=== PATIENT | female | born 1945 | race Caucasian/White ===

== ENCOUNTER → 2024-01-23 07:38 | Outpatient (REF) | payer MEDICARE, OTHER, SELFPAY ==
[2024-01-23 09:31] LABS: % Basophils 0.7 % (0-2); % Eosinophils 4.2 % (0-6); % Immature Granulocytes 0.3 % (0-0.5); % Lymphocytes 26.2 % (20.5-51.1); % Monocytes 10.3 % (1.7-9.3); % Neutrophils 58.3 % (42.2-75.2); Absolute Basophils 0.1 10^3/uL (0-0.2); Absolute Eosinophils 0.3 10^3/uL (0-0.7); Absolute Monocytes 0.8 10^3/uL (0.1-0.6); Absolute Neutrophils 4.5 10^3/uL (1.4-6.5); Hematocrit 39.6 % (37.0-47.0); Hemoglobin 13.9 g/dL (12.0-16.0); Mean Corp Hgb Conc. 35.1 g/dL (33.0-37.0); Mean Corpuscular Hgb 32.6 pg (27.0-31.0); Nucleated Red Blood Cells % 0 %; Platelet Count 387 10^3/uL (130-400); Red Blood Cell Count 4.26 10^6/uL (4.20-5.40); Red Cell Dist. Width 11.9 % (11.5-14.5); White Blood Cell Count 7.7 10^3/uL (4.8-10.8)
[2024-01-23 09:45] LABS: ALT (SGPT) 15 U/L (0-35); AST (SGOT) 24 U/L (14-36); Alkaline Phosphatase 57 U/L (38-126); Blood Urea Nitrogen 18 mg/dl (7-17); Calcium 9.8 mg/dl (8.4-10.2); Carbon Dioxide 26 mmol/L (22-30); Chloride 99 mmol/L (98-107); Glucose 108 mg/dl (70-99); HDL Cholesterol 37 mg/dl; LDL Cholesterol, Calculated 111 mg/dl; Potassium 3.7 mmol/L (3.5-5.1); Sodium 132 mmol/L (135-145); Total Bilirubin 0.7 mg/dl (0.2-1.3); Total Cholesterol 174 mg/dl (50-199); Total Protein 6.6 g/dl (6.3-8.2); Triglyceride 134 mg/dl (10-149); Very Low Density Lipoprotein 26 mg/dl (0-30); eGFR > 60.00
[2024-01-23 09:50] LABS: Urine Albumin Trace (Neg - Trace); Urine Bilirubin Negative (Negative); Urine Character Clear (Clear); Urine Color Yellow; Urine Glucose Negative (Negative); Urine Ketone Trace (Negative); Urine Leukocyte Trace (Negative); Urine Nitrite Negative (Negative); Urine Occult Blood Negative (Negative); Urine Urobilinogen Negative (Neg - 1+)
[2024-01-23 10:11] LABS: TSH Reflex To Free T4 2.34 uIU/ml (0.47-4.68)
[2024-01-23 11:25] LABS: Urine Mucus Few
[2024-01-23 11:26] LABS: Urine Amorphous Seen; Urine Urothelial Cell 26-30 /LPF (FEW)
[2024-01-23 11:28] LABS: Urine Bacteria Few (Negative); Urine Red Blood Cell 0-2 /HPF (0-2)
[2024-01-23 13:20] LABS: Glycohemoglobin (HgbA1c) 5.9 % (4.0-5.6)
== END ==
LOC: HWLAB 07:38
PROVIDERS: ATTENDING PHYSICIAN Family Medicine
DX: I10 Essential (primary) hypertension (principal); C50.911 Malignant neoplasm of unspecified site of right female breast; R73.03 Prediabetes; E78.00 Pure hypercholesterolemia, unspecified
CPT/HCPCS: 36415; 80053; 80061; 81003; 81015; 83036; 84443; 85025

== ENCOUNTER → 2024-05-27 12:36 | Outpatient (REF) | payer MEDICARE, OTHER, SELFPAY | LOC: HWWDC 12:36 | PROVIDERS: ATTENDING PHYSICIAN Family Medicine Geriatric Medicine; FAMILY PHYSICIAN Family Medicine; REFERRING PHYSICIAN Surgery | DX: Z12.31 Encounter for screening mammogram for malignant neoplasm of breast (principal) | CPT/HCPCS: 77063; 77067 ==

== ENCOUNTER 2024-11-15 14:36 | Inpatient (IN) | payer MEDICARE, OTHER, SELFPAY ==
[2024-11-13 10:56] VITALS: BP 137/97
[2024-11-13 11:19] LABS: % Basophils 0.2 % (0-2); % Eosinophils 0.2 % (0-6); % Immature Granulocytes 0.3 % (0-0.5); % Lymphocytes 16.2 % (20.5-51.1); % Monocytes 8.8 % (1.7-9.3); % Neutrophils 74.3 % (42.2-75.2); Absolute Lymphocytes 1.4 10^3/uL (1.2-3.4); Absolute Monocytes 0.8 10^3/uL (0.1-0.6); Absolute Neutrophils 6.4 10^3/uL (1.4-6.5); Hematocrit 40.7 % (37.0-47.0); Hemoglobin 14.4 g/dL (12.0-16.0); Mean Corp Hgb Conc. 35.4 g/dL (33.0-37.0); Mean Corpuscular Hgb 33.1 pg (27.0-31.0); Mean Corpuscular Volume 93.6 fL (81.0-99.0); Mean Platelet Volume 9.6 fL (7.4-10.4); Nucleated Red Blood Cells % 0 %; Platelet Count 270 10^3/uL (130-400); Red Blood Cell Count 4.35 10^6/uL (4.20-5.40); Red Cell Dist. Width 12.4 % (11.5-14.5); White Blood Cell Count 8.7 10^3/uL (4.8-10.8)
[2024-11-13 11:41] LABS: NT-proBNP 23500 pg/ml
[2024-11-13 11:43] LABS: ALT (SGPT) 22 U/L (0-35); AST (SGOT) 29 U/L (14-36); Alkaline Phosphatase 56 U/L (38-126); Blood Urea Nitrogen 16 mg/dl (7-17); Carbon Dioxide 22 mmol/L (22-30); Chloride 97 mmol/L (98-107); Glucose 164 mg/dl (70-99); Potassium 4.1 mmol/L (3.5-5.1); Sodium 129 mmol/L (135-145); Total Protein 6.2 g/dl (6.3-8.2); eGFR > 60.00
--- NOTE | 2024-11-13 12:45 | ED.GENMED ---
History of Present Illness
General
Chief Complaint: Breathing Problem
Source: patient
Exam Limitations: none
Time Seen by Provider: 11/13/24 12:35
History of Present Illness
History of Present Illness:
79-year-old female with history of hypertension presents with progressive worsening shortness of breath and dyspnea on exertion over the past several weeks. She denies any significant leg swelling or weight gain. She does note a nonproductive
cough. She denies a fever or chest pain. No prior diagnosis of CAD or CHF. She also notes palpitations at times. No recent travel or surgery. No other complaints
Past History
Past History
ED Past Medical History: HTN
ED Past Surgical History: Gynecological (Hysterectomy)
Social History
Tobacco: Non-smoker
Alcohol: None
Drug: None
Living: with family
Phy Exam
Physical Exam
Physical Exam:
General: Well-appearing female with increased work of breathing
HEENT: Normocephalic atraumatic
Heart: Tachycardic but regular
Lungs: Clear no obvious wheeze or rales
Extremities: Mild pitting edema bilateral lower extremities no cyanosis
Skin is warm no rash
Scores
Heart Failure Risk
Heart Failure Risk Score: Not Applicable
Course
Orders/Labs/Results
Orders:
Orders
11/13/24 10:59
Electrocardiogram (*1) Urgent
Reason for Study: Shortness of Breath
11/13/24 11:00
EKG- Treatment ONCE
11/13/24 11:09
Complete Blood Count/With Diff Urgent
Comprehensive Metabolic Panel Urgent
NT-proBNP Urgent
TSH Reflex To Free T4 Urgent
11/13/24 12:[address] Non Medication Order As Directed
Physician Order: ambulatory pulse ox
Above order entered?: Yes
11/13/24 12:45
CR Chest - 2 Views Urgent
Comment:
Reason For Exam: sob
11/13/24 13:15
Troponin I Urgent
11/13/24 13:38
Troponin I Urgent
Furosemide [Lasix] 40 mg IV NOW STA
Abnormal Lab Results
11/13/24
11:09
MCH 33.1 H pg
(27.0-31.0)
Absolute Monos (auto) 0.8 H 10^3/uL
(0.1-0.6)
Lymphocytes % 16.2 L %
(20.5-51.1)
Sodium 129 L mmol/L
(135-145)
Chloride 97 L mmol/L
(98-107)
Glucose 164 H mg/dl
(70-99)
Total Protein 6.2 L g/dl
(6.3-8.2)
11/13/24 11:09
11/13/24 11:09
Vital Signs
Initial and Last Documented VS:
Initial Vital Signs
Temp Pulse Resp BP Pulse Ox
98.0 F 104 18 137/97 96
11/13/24 10:56 11/13/24 10:56 11/13/24 10:56 11/13/24 10:56 11/13/24 10:56
Last Documented Vital Signs
Temp Pulse Resp BP Pulse Ox
98.0 F 121 20 137/97 95
11/13/24 10:56 11/13/24 13:27 11/13/24 13:27 11/13/24 10:56 11/13/24 13:27
MDM/Problems Addressed
Differential Diagnosis Includes:
Shortness of breath and dyspnea on exertion worsening over the past several weeks. Differential could include anemia versus electrolyte abnormality versus CHF versus pneumonia versus PE. Also consider ACS.
EKG shows left bundle branch block with PACs and sinus tachycardia otherwise. Labs reviewed BNP elevated at 23,500. Chest x-ray pending. Consider CHF. If chest x-ray negative consider CT of chest given tachycardia and shortness of breath.
*Critical Care Note
Total Time (30-74mins, 75-104mins- exclusive of procedures): Not Applicable
Update Note
Update Note:
Chest x-ray demonstrates moderate bilateral pleural effusions with pulmonary edema. BNP is elevated here. I suspect CHF. Patient quite dyspneic on exertion here. Will order 40 mg of Lasix. Recommend admission to hospital
ED Attending Note
-
Portions of this chart may have been created with voice recognition software.� Occasional wrong word or��sound alike� substitutions may have occurred due to the inherent limitations of voice recognition software.
Discharge Plan
Departure
Patient Disposition: Admit
Date of Disposition: 11/13/24
Time of Disposition: 13:40
Admit to: Telemetry
Presentation/result/management discussed w/ accepting MD/DO: Hospitalist
Discharge Problem:
CHF (congestive heart failure)
Prescriptions:
No Action
clonazepam 0.25 MG tablet
0.25 mg PO Q8H PRN (Reason: anxiety)
hydrochlorothiazide 12.5 MG capsule
12.5 mg PO DAILY
lisinopril [Prinivil] 5 MG tablet
5 mg PO DAILY
prednisone 50 MG tablet
50 mg PO DAILY Qty: 5 0RF
valacyclovir 1,000 MG tablet
1,000 mg PO TID Qty: 21 0RF
Referrals:
Jeana Rob MD [Family Provider] -
Interventions
Interventions:
*Risk Screen - Suicide Last Done: 11/13/24 10:56
*General Assessment Last Done: 11/13/24 10:56
*Neglect/Abuse Screening Last Done: 11/13/24 10:56
*ED COVID-19 Vaccine History Last Done: 11/13/24 10:56
Discharge Date and Time
Print Language: HUNGARIAN
[2024-11-13 13:53] LABS: Troponin I 0.035 ng/ml
[2024-11-13] MEDS: LASIX 40 MG IV (14:19)
[2024-11-13 14:20] VITALS: BMI 26.4
--- NOTE | 2024-11-13 14:35 | HPS.HSE ---
Family Physician
-
Family Physician: Jeana Rbo
Chief Complaint
-
shortness of breath
History of Present Illness
79-year-old female past medical history of chronic sinusitis hypertension, presenting with progressive shortness of breath with exertion over the past several weeks with mildly productive cough. Denies any lower leg swelling or weight gain. Denies
fevers or chest pain. No prior history of CAD or CHF. She has palpitations at times.
Denies any history of heart failure or CAD.
She was started on Augmentin for sinus issues which she took for 5 days but then stopped taking for the past 2 days. She is supposed to take this for 10 days total.
Denies any family history of heart disease.
Does not smoke or drink alcohol.
Medical History
Past Medical History
Past Medical History: Reports Other (chronic sinusitis hypertension)
Past Surgical History: Reports Other (Tonsillectomy, , breast biopsy)
Social History
Tobacco: Non-smoker
Alcohol: None
Drug: None
Family History
Family History: Not pertinent
Allergies / Home Medications
Allergies reflects when Allergies were last updated in [email or web address].
Home Medications with original date entered in [email or web address]
Allergy/Medication List:
Allergies
Allergy/AdvReac Type Severity Reaction Status Date / Time
azithromycin Allergy WELTS & Verified 12/21/21 07:34
HIVES FROM
Z-GODFREY
cefuroxime Allergy Hives Verified 12/21/21 07:34
hydrochlorothiazide Allergy Unknown Verified 11/13/24 10:59
levofloxacin Allergy Unknown Verified 12/21/21 07:34
sulfamethoxazole Allergy VERY Verified 12/21/21 07:34
NERVOUS
trimethoprim Allergy VERY Verified 12/21/21 07:34
NERVOUS
Home Medications
Calms Forte 1 tab PO HSPRN PRN sleep 11/13/24
amoxicillin 875 mg-potassium clavulanate 125 mg tablet 1 tab PO BID 11/13/24
clonazepam 0.5 mg tablet 0.25 mg PO BIDPRN PRN anxiety 11/13/24
fexofenadine 180 mg tablet 180 mg PO DAILYPRN PRN sinus infection/congestion 11/13/24
lisinopril 5 mg tablet 5 mg PO DAILY 11/13/24
Review of Systems
-
History Source: Patient
A 12 point ROS was completed and negative except as noted: Yes
Constitutional: Reports No Symptoms
EENT: Reports No Symptoms
Respiratory: Reports See HPI
Cardiac: Reports See HPI
Abdomen/GI: Reports No Symptoms
: Reports No Symptoms
Musculoskeletal: Reports No Symptoms
Skin: Reports No Symptoms
Neurological: Reports No Symptoms
Endocrine: Reports No Symptoms
Hematologic/Lymphatic: Reports No Symptoms
Psych: Reports No Symptoms
Physical Exam
Vital Signs
Vital Signs
Temp Pulse Resp BP Pulse Ox
98.0 F 98 20 131/85 95
11/13/24 10:56 11/13/24 14:19 11/13/24 13:27 11/13/24 14:19 11/13/24 13:27
Physical Exam
General: Well Developed, Well Nourished and No Apparent Distress
HEENT: NormoCephalic, Moist mucous membranes and Atraumatic
Respiratory: Rales
Cardiac: S1/S2 and Regular Rhythm; No Murmur or Rub
GI: Soft, Non Tender, Non Distended and Normal Bowel Sounds; No Organomegaly
Rectal: Deferred by Provider
Musculoskeletal: No Clubbing, No Cyanosis and No Edema
Skin: No Rash
Neuro: Nonfocal/grossly intact
Laboratory Results
-
11/13/24 11:09
11/13/24 11:09
Laboratory Results
Total Bilirubin 1.0 mg/dl (0.2-1.3) 11/13/24 11:09
AST 29 U/L (14-36) 11/13/24 11:09
ALT 22 U/L (0-35) 11/13/24 11:09
Alkaline Phosphatase 56 U/L (38-126) 11/13/24 11:09
Troponin I Cancelled 11/13/24 13:38
Data Reviewed
-
Lab Data: Labs Reviewed by me
Old Records: Reviewed
Impression/Plan
-
IMPRESSION:
PLAN:
# Acute CHF exacerbation
-Chest x-ray shows small to moderate-sized bilateral pleural effusions, large bilateral lower lobe basilar space consolidations likely compressive atelectasis versus less likely pneumonia
-Moderate interstitial cardiogenic pulm edema
-Cardiac BNP of 1999
-I's and O's, daily weights
-Lasix 40 IV daily
-Check echo
-Cardiology consult
# Nonischemic myocardial injury
-no chest pain
-EKG shows sinus tachycardia with PACs, left bundle branch block without prior for comparison
-Troponin 0.035
-Trend troponins
# Chronic sinusitis
-Was started on Augmentin for 10-day course only took 5 days and stopped taking
-Can stop as no acute sinusitis symptoms currently
-Continue Johanny
Essential hypertension
-Continue lisinopril
Anxiety
-Continue clonazepam
Full code
DVT prophylaxis�heparin
Cardiac diet
[2024-11-13 15:24] VITALS: BP 135/92
[2024-11-13 16:00] VITALS: BP 136/99
[2024-11-13 16:41] VITALS: BP 142/90
--- NOTE | 2024-11-13 17:16 | PTCARENOTE ---
Patient admitted to 2243 with CHF exacerbation. Oriented to room and plan of care. SR on the monitor, 100% on RA, decreased breath sounds at the bases with fine crackles. While doing the patient's admission assessment she had a 16 beat run of VT.
Patient was asymptomatic and returned to . Notified Dr. Franklin, to add mag to ED labs. at the bedside, call perez in reach.
[2024-11-13] MEDS: KLONOPIN 0.25 MG PO (18:21)
--- NOTE | 2024-11-13 18:37 | PTCARENOTE ---
Patient is upset about being in a single room, was hoping she'd have a room mate. Very anxious, wants to have the doors wide open so that she can see out. Assisted to the bathroom and instructed to call for help when getting oob. Patient admitting
to feeling more and more anxious and requested prn klonopin which was given, emotional support given, call perez in reach.
[2024-11-13 19:40] VITALS: BP 110/95
[2024-11-13] MEDS: HEPARIN 5000 UNITS SC (20:07)
[2024-11-13 20:43] LABS: Troponin I 0.046 ng/ml
[2024-11-13 22:44] VITALS: BP 128/84
[2024-11-14] VITALS (24 sets, daily range): BP systolic 90–130; BP diastolic 61–101; BMI 24.5
[2024-11-14] MEDS: KLONOPIN 0.25 MG PO ×2 (02:21→20:48)
[2024-11-14 02:55] LABS: Hematocrit 41.3 % (37.0-47.0); Hemoglobin 14.1 g/dL (12.0-16.0); Mean Corp Hgb Conc. 34.1 g/dL (33.0-37.0); Mean Corpuscular Hgb 32.1 pg (27.0-31.0); Mean Corpuscular Volume 94.1 fL (81.0-99.0); Mean Platelet Volume 9.2 fL (7.4-10.4); Platelet Count 257 10^3/uL (130-400); Red Blood Cell Count 4.39 10^6/uL (4.20-5.40); Red Cell Dist. Width 12.6 % (11.5-14.5); White Blood Cell Count 8.8 10^3/uL (4.8-10.8)
[2024-11-14 03:22] LABS: Blood Urea Nitrogen 14 mg/dl (7-17); Calcium 9.9 mg/dl (8.4-10.2); Carbon Dioxide 23 mmol/L (22-30); Chloride 99 mmol/L (98-107); Estimated Creatinine Clearance 60 ml/min; Glucose 93 mg/dl (70-99); Potassium 3.5 mmol/L (3.5-5.1); Sodium 133 mmol/L (135-145); eGFR > 60.00
[2024-11-14 03:34] LABS: Troponin I 0.047 ng/ml
--- NOTE | 2024-11-14 04:00 | PTCARENOTE ---
Pt ambulating as stand by assist to the bathroom without issue. No complaints of chest pain. pt resting in bed comfortable overnight after second PRN Klonopin for anxiety. emotional support provided throughout shift.
[2024-11-14] MEDS: HEPARIN 5000 UNITS SC ×2 (08:36→20:48)
[2024-11-14] MEDS: LASIX 40 MG IV (08:37)
--- NOTE | 2024-11-14 09:44 | CON.CAR ---
Addendum entered and electronically signed by Vladislav Anguiano MD 11/14/24 11:46:
Patient seen and examined in collaboration with NETWORKING SPECIALIST; agree with below.
-79-year-old female with hypertension, hyperlipidemia, and prediabetes admitted with 1 month history of shortness of breath; clinical findings suggestive of acute CHF, including cardiac BNP of 23,500.
-Transthoracic echocardiogram today revealed an LVEF of 10-15% and moderate to severe MR.
-The patient will undergo right and left heart catheterization today to assess coronary status and cardiac output/index.
-Recommend Lasix 40 mg once daily, given blood pressure limitations.
-The patient has also had brief runs of NSVT on telemetry; will start Toprol-XL 25 mg daily.
-Continue telemetry.
-Further GDMT throughout hospitalization, his blood pressure and clinical status allows.
Original Note:
Consultation
Consultation Request
Date/Time Consultation Requested: 11/13/242216
Date/Time Consultation Performed: 11/14/24929
Requesting Provider: Dr. Franklin
Performing Provider: Eliza ERICKSON for Dr. Anguiano
Reason for Consultation: CHF
Medical History
-
Chief Complaint: SOB
History of Present Illness:
79 y/o female with hypertension, dyslipidemia (most recent LDL 111), preDM (hgbA1C 5.9 last year), anxiety, breast CA (right-sided ductal carcinoma in situ, s/p radiation) who is here for about 1 month of SOB, worse with exertion and laying. Also
reports PND and abdominal bloating. She has noted L-sided mild chest pressure when she gets the SOB, over the past week. No CP at present. She is admitted for CHF. LBBB noted on EKG, which is new since last EKG as OP 2021.
Past Medical History
Past Medical History: Cancer, HTN, Hypercholesterolemia and Other (as above)
Social History
Tobacco: Non-Smoker
Alcohol: None
Family History
Family History: Other (patient does not know)
Allergies / Home Medications
Allergy/AdvReac Type Severity Reaction Status Date / Time
azithromycin Allergy WELTS & Verified 12/21/21 07:34
HIVES FROM
Z-GODFREY
cefuroxime Allergy Hives Verified 12/21/21 07:34
hydrochlorothiazide Allergy Unknown Verified 11/13/24 10:59
levofloxacin Allergy Unknown Verified 12/21/21 07:34
sulfamethoxazole Allergy VERY Verified 12/21/21 07:34
NERVOUS
trimethoprim Allergy VERY Verified 12/21/21 07:34
NERVOUS
�Medication �Instructions �Recorded �Confirmed �Type
Calms Forte 1 tab PO HSPRN PRN sleep 11/13/24 11/13/24 History
amoxicillin 875 mg-potassium 1 tab PO BID Infection 11/13/24 11/13/24 History
clavulanate 125 mg tablet
clonazepam 0.5 mg tablet 0.25 mg PO BIDPRN PRN anxiety 11/13/24 11/13/24 History
fexofenadine 180 mg tablet 180 mg PO DAILYPRN PRN sinus 11/13/24 11/13/24 History
infection/congestion
lisinopril 5 mg tablet 5 mg PO DAILY Blood Pressure 11/13/24 11/13/24 History
Review of Systems
-
History Source: Patient
All other systems: Negative unless noted
Respiratory: Cough and Trouble Breathing
Cardiac: Chest Pain
Physical Exam
Vital Signs
Temp Pulse Resp BP Pulse Ox
97.5 F 71 18 119/74 93
11/14/24 07:39 11/14/24 08:37 11/14/24 07:39 11/14/24 08:37 11/14/24 07:39
Lab Results
11/14/24 02:31
11/14/24 02:31
Troponin I 0.047 ng/ml H* 11/14/24 02:31
Qoy-Q-Wuckjmdqzio Pept 54661 pg/ml 11/13/24 11:09
Physical Exam
General: Well Developed, Well Nourished and No Apparent Distress
HEENT: Normocephalic and Anicteric
Respiratory: Crackles (b/l bases)
Cardiac: Regular Rhythm
Musculoskeletal: Edema (trace BLE edema)
Skin: Warm and Dry
Neuro: AO x 3
Psych: Calm
Impression / Plan
-
Acute heart failure with reduced ejection fraction:
-BNP 23,500, CXR with pleural effusions, pulmonary edema as noted, rales to BL bases
-IV Lasix, will change to BID and give potassium supplementation- this requires intensive monitoring for toxicity
-echo this AM- prelim read EF is reduced- will need cath. Check lipids, HGBa1C.
NSVT:
-replace K
-cath this admit as above
-add BB
HTN:
-stable
-monitor with medicine adjustments
Abnormal troponin:
-likely acute, non ischemic myocardial injury in setting of CHF
Data Reviewed
-
EKG: Tracing Personally Visualized and interpreted (ST with LBBB, PAC's)
Radiology: Report Reviewed by me (CXR: Small to moderate-sized bilateral pleural effusions. Large bilateral lower lobe basilar airspace consolidations (probably compressive atelectasis and less likely pneumonia). Moderate interstitial cardiogenic
pulmonary edema. )
Labs: Labs Reviewed by me
--- NOTE | 2024-11-14 10:53 | CM ---
Chart reviewed. Patient is independent of ADLS, lives with her in a [address], 1 [address], 0 DME. Plan is for the patient to return home. CM to follow
[2024-11-14] MEDS: ASPIRIN 325 MG PO (11:17)
[2024-11-14] MEDS: KCL 40 MEQ PO (11:17)
[2024-11-14] MEDS: TOPROL XL 25 MG PO (11:18)
--- NOTE | 2024-11-14 12:18 | W.PN.UPDATE ---
Update Note
Progress Note Update
I called patient's Dawson over the phone and updated him at patient's request.
--- NOTE | 2024-11-14 13:15 | PTCARENOTE ---
Discussed all nursing measures prior to implementation. Discussed cardiac cath procedure.
--- NOTE | 2024-11-14 13:23 | W.PN.HOSP.TC ---
Today's Communication/Plan
-
Assessment / Plan
Assessment / Plan
Acute HFrEF exacerbation, EF 10 to 15%
-IV diuretics
-Per cardiology for LHC/RHC
-Monitor urinary output
-Follow renal function
-Keep K greater than 4
-Keep Mg greater than 2
Nonischemic NH
-Trend trop
-Cards eval
-For LHC/RHC
NSVT
-Keep K >4
-Keep Mg >2
-add BB
HTN
-Continue acei
Anticipated Discharge: 24 - 48 hours
Subjective/Interval History
-
Date of Service: November 14, 2024
seen an dexamined. no new complaints
no acute ovenright events
Objective Data
-
Labs:
Laboratory Results
11/14/24
02:31
WBC 8.8
Hgb 14.1
Hct 41.3
Plt Count 257
Sodium 133 L
Potassium 3.5
Chloride 99
Carbon Dioxide 23
BUN 14
Creatinine 0.7
Glucose 93
Calcium 9.9
Vital Signs:
Vital Signs
Temp Pulse Resp BP Pulse Ox
97.6 F 87 20 125/85 98
11/14/24 11:00 11/14/24 12:00 11/14/24 11:00 11/14/24 11:18 11/14/24 11:00
I&O
11/13/24 11/14/24 11/15/24
06:59 06:59 06:59
Intake Total 240 / 240 450 / 450
Output Total 1300 / 1300
Balance 240 / 240 -850 / -850
Physical Exam
-
General: No Apparent Distress
HEENT: Normocephalic and Atraumatic
Respiratory: Crackles
Cardiac: Regular Rhythm and S1/S2
GI: Soft, Nontender, Nondistended and Normal Bowel Sounds
Musculoskeletal: Edema, Right Lower Extrem and Edema, Left Lower Extrem
Skin: Warm
--- NOTE | 2024-11-14 13:45 | PTCARENOTE ---
Received pt post cath. VSS. Pt denies any chest discomfort. Right radial band site w/ 12 ml of air intact. Orders noted. Will monitor.
[2024-11-14] MEDS: ZESTRIL 5 MG PO (17:35)
--- NOTE | 2024-11-14 17:51 | PTCARENOTE ---
Pt bled about 50 ml of blood, on the floor from R band. Unsure of amount of air in band. Pt had ambulated to the bathroom prior to bleed. Manual pressure over the R band applied. Reinflated R band w/ 5 ml of air. VSS. Will monitor.
--- NOTE | 2024-11-14 18:34 | ITS.CL.PN ---
Hardware Developer - Procedure Note
Procedure
Procedure Note:
CARDIAC CATHETERIZATION REPORT
Date of Procedure: 11/14/2024
Referring: Dr. Vladislav Anguiano MD
Indication: heart failure
PROCEDURE(S)
1. right heart catheterization
2. left heart catheterization
3. coronary angiography
ACCESS
1. 6F right radial artery (closure: radial band)
2. 5F right antecubital vein (closure: manual hemostasis)
CATHETERS
1. 5F [place]
2. 6F JR4
3. 6F JL3.5
HEMODYNAMIC DATA
LV 124/11 (EDP 25) mmHg
AO 110/76 (mean 90) mmHg
RA 11 mmHg
RV 35/8 mmHg
PA 40/18 (mean 25) mmHg
PCWP 16 mmHg
SaO2 87.7%
SvO2 60.2%
Hb 15.3 g/dL
CO/CI 3.5/2.2 L/min/m2
SVR 1804 dsc*-5
PVR 2.6 Wood units
CORONARY ANGIOGRAPHY
Dominance: Right
LM: Large and normal
LAD: Large vessel giving rise to two small diagonal branches. There are trivial luminal irregularities only.
LCx: Large vessel giving rise to a large high rising OM1/ramus, moderate caliber OM2, and small OM3. There are trivial luminal irregularities only.
RCA: Large vessel giving rise to a moderate caliber RPDA and a large RPL system. There are trivial luminal irregularities only.
RADIATION: dose 186 mGy; DAP 11.9 Gy*cm2; fluoroscopy time 2.0 min
CONCLUSIONS
1. Elevated biventricular filling pressures, mild pulmonary hypertension, and mildly reduced cardiac output and index.
2. No aortic stenosis on hemodynamic pullback.
3. Trivial luminal irregularities in a right dominant system.
RECOMMENDATIONS
1. expectant management after cardiac catheterization via right radial artery and right brachial vein approach
2. further workup and management of nonischemic cardiomyopathy. reassessment of EF and MR severity after several months of maximally tolerated GDMT to determine indication for SUPERINTENDENT SANITATION/mitraclip.
3. transition to oral diuretics tomorrow
Copy to: Jeana Rob MD (PCP)
Signed: Zach Cheney MD, PhD
[2024-11-14 19:20] LABS: Hepatitis C Antibody Negative (Negative)
[2024-11-15] VITALS (7 sets, daily range): BP systolic 95–131; BP diastolic 55–94; BMI 23.8
--- NOTE | 2024-11-15 02:50 | PTCARENOTE ---
21:15 pt c/o left groin pain. Left groin swollen, hard, and painful to touch. CVPA notified, applied femostop, pt taken to STAT CTA.
[2024-11-15 03:19] LABS: Hematocrit 42.5 % (37.0-47.0); Hemoglobin 14.9 g/dL (12.0-16.0); Mean Corp Hgb Conc. 35.1 g/dL (33.0-37.0); Mean Corpuscular Hgb 32.5 pg (27.0-31.0); Mean Corpuscular Volume 92.6 fL (81.0-99.0); Mean Platelet Volume 9.5 fL (7.4-10.4); Platelet Count 261 10^3/uL (130-400); Red Blood Cell Count 4.59 10^6/uL (4.20-5.40); Red Cell Dist. Width 12.6 % (11.5-14.5)
[2024-11-15 03:59] LABS: Blood Urea Nitrogen 13 mg/dl (7-17); Calcium 9.9 mg/dl (8.4-10.2); Carbon Dioxide 29 mmol/L (22-30); Chloride 95 mmol/L (98-107); Estimated Creatinine Clearance 47 ml/min; Glucose 108 mg/dl (70-99); HDL Cholesterol 39 mg/dl; LDL Cholesterol, Calculated 76 mg/dl; Potassium 3.6 mmol/L (3.5-5.1); Sodium 131 mmol/L (135-145); Total Cholesterol 133 mg/dl (50-199); Triglyceride 94 mg/dl (10-149); Very Low Density Lipoprotein 18 mg/dl (0-30); eGFR > 60.00
--- NOTE | 2024-11-15 08:05 | PTCARENOTE ---
Assumed care of pt from prev nsg shift; Pt AAOx3 w/no c/o CP or SOB. Pt w/VS stable w/HR in the 80's-90's & BP 131/62 this AM. Plan of care discussed w/pt & spouse. Pt for poss D/C today. Pt verbalized understanding. Pt w/call perez within reach &
plan of care ongoing.
[2024-11-15] MEDS: TOPROL XL 25 MG PO (10:44)
[2024-11-15] MEDS: ZESTRIL 5 MG PO (10:44)
[2024-11-15] MEDS: HEPARIN 5000 UNITS SC (10:44)
[2024-11-15] MEDS: LASIX 40 MG PO (10:44)
[2024-11-15] MEDS: LOW STRENGTH ASPIRIN 81 MG PO (10:44)
--- NOTE | 2024-11-15 11:31 | CM ---
Chart reviewed. Patient is independent of ADLS, lives with her in a 2 [address], 1 [facility], 0 DME. Patient is current not current with VN, but is interested in VN. Referral sent to [facility]. Plan is for the [facility]
[2024-11-15 11:32] LABS: Glycohemoglobin (HgbA1c) 5.8 % (4.0-5.6)
[2024-11-15] MEDS: KLONOPIN 0.25 MG PO (12:32)
--- NOTE | 2024-11-15 14:50 | CM ---
Pricing on Entresto is a tier 3 medication $604.22 for a 30 day supply with the patient's [employer] Plan, ID # [id number].
Farxiga 10 mg is $563.90, the patient needs to meet her $2000 deductible first.
[2024-11-15] MEDS: FARXIGA 10 MG PO (15:24)
--- NOTE | 2024-11-15 16:10 | W.PN.CD ---
Today's Communication / Plan
-
discharge today on GDMT and close outpatient cardiology follow up
Impression / Plan
-
Acute heart failure with reduced ejection fraction:
-BNP 23,500, CXR with pleural effusions, pulmonary edema as noted, rales to BL bases
-severely reduced EF on TTE
-cath with non-obstructive CAD, mildly elevated filling pressures
-most likely etiology is stress induced CM (recent in the family), TSH normal
-initiate GDMT with lisinopril 5, metop 25, will add dapa 10 and increase lisinopril to 5; next would be spironolactone (Entersto not affordable)
-will discharge on lasix 40 mg PO daily
-needs close outpatient follow up to titrate GDMT and for reassessment of EF once on maximally tolerated GDMT to determine candidacy for advanced therapies (SUPERVISOR HARDBO[employer], yamel clip)
NSVT:
-continue BB
HTN:
-stable
-monitor with medicine adjustments
Abnormal troponin:
-likely acute, non ischemic myocardial injury in setting of CHF
Extensive discussion with patient and on the phone regarding workup for heart failure and management options as well as collaboration with case management and primary team to determine affordable optimal GDMT regimen.
TTE 11/14/2023
-LV ejection fraction is 10-15%, by visual assessment. Severe global
hypokinesis. Wall motion is also consistent with conduction abnormality.
-Normal right ventricular size and function.
-Severely dilated left atrium. Moderately dilated right atrium.
-Moderate to severe mitral regurgitation.
-Mild to moderate tricuspid regurgitation. Estimated pulmonary artery pressure
of 25-30 mmHg.
Cath 11/14/2023
1. Elevated biventricular filling pressures, mild pulmonary hypertension, and mildly reduced cardiac output and index.
2. No aortic stenosis on hemodynamic pullback.
3. Trivial luminal irregularities in a right dominant system.
Physical Exam
Vital Signs/Labs
Vital Signs
Temp Pulse Resp BP Pulse Ox
36.4 C 77 20 108/94 92
11/15/24 15:34 11/15/24 13:00 11/15/24 15:34 11/15/24 11:18 11/15/24 15:34
11/14/24 11/15/24 11/16/24
06:59 06:59 06:59
Actual Weight 60.7 kg 59 kg
11/15/24 02:54
11/15/24 02:54
Magnesium 2.0 mg/dl (1.6-2.3) 11/13/24 11:09
Triglycerides 94 mg/dl (10-149) 11/15/24 02:54
LDL Cholesterol, Calc 76 mg/dl 11/15/24 02:54
VLDL Cholesterol, Calc 18 mg/dl (0-30) 11/15/24 02:54
HDL Cholesterol 39 mg/dl 11/15/24 02:54
11/13/24
11:09
Rth-D-Qcgminsnynf Pept [id number]
LAB Results
11/13/24 11/13/24 11/13/24
13:15 13:38 16:36
Troponin I 0.035 H* Cancelled Cancelled
11/13/24 11/13/24 11/14/24
20:05 22:36 02:31
Troponin I 0.046 H* D Cancelled 0.047 H*
Physical Exam
Constitutional: No acute distress
Cardiovascular: Rhythm & rate is regular
Respiratory: Respiratory effort normal
Neuro/Psych: AO x 3
Data Reviewed
-
Date of Service: November 15, 2024
Medical Decision Making: Reviewed Test Results
EKG: Tracing Personally Visualized and interpreted and Report Reviewed by me
Echo: Tracing Personally Visualized and interpreted and Report Reviewed by me
Labs: Labs Reviewed by me
--- NOTE | 2024-11-15 16:35 | W.PN.HOSP.TC ---
Today's Communication/Plan
-
DC home
More than 30 minutes spent in discharge including
Final examination of the patient
Summarizing hospital stay
Instructions for continuing care to all relevant caregivers
Preparation of discharge records, prescriptions, and referral forms
Total time spent (in minutes): 33mins
Assessment / Plan
Assessment / Plan
Acute HFrEF exacerbation, EF 10 to 15%, nonischemic, NYHA class II-IV
-Transition to p.o. diuretics
-LHC demonstrated trivial luminal irregularities
-Monitor urinary output
-Follow renal function
-Keep K greater than 4
-Keep Mg greater than 2
-GDMT initiated discharge home with Lasix 40 mg, Jardiance for which a coupon was provided, beta-delia, CECILIA inhibitor
Nonischemic UT
-S/p left heart catheterization, trivial luminal irregularities
NSVT
-Keep K >4
-Keep Mg >2
-add BB
HTN
-Continue acei
Anticipated Discharge: Today
Subjective/Interval History
-
Date of Service: November 15, 2024
Seen and examined. No new complaints. No acute overnight events.
Objective Data
-
Vital Signs:
Vital Signs
Temp Pulse Resp BP Pulse Ox
97.6 F 78 20 95/55 92
11/15/24 15:34 11/15/24 16:00 11/15/24 15:34 11/15/24 15:34 11/15/24 15:34
I&O
11/14/24 11/15/24 11/16/24
06:59 06:59 06:59
Intake Total 240 / 240 450 / 450
Output Total 1850 / 1850 150 / 150
Balance 240 / 240 -1400 / -1400 -150 / -150
Physical Exam
-
General: Well Developed and Well Nourished
HEENT: Normocephalic
Respiratory: Clear to Auscultation
Cardiac: Regular Rhythm and S1/S2
GI: Soft, Nontender, Nondistended and Normal Bowel Sounds
Musculoskeletal: No Clubbing
Skin: Warm and Dry
Neuro: Awake, Alert, Oriented and AO x 3
--- NOTE | 2024-11-15 16:37 | W.DCSUMMARY ---
Discharge Summary
Discharge Data
Date of Admission: 11/15/24
Date of Discharge: 11/15/24
-
Pending Results: No
Hospital Course
79-year-old female past medical history of chronic sinusitis hypertension
Presented with shortness of breath with associated exertion and mild productive cough. Found to have a high cardiac BNP and cardiac enzymes along with chest x-ray demonstrating bilateral pleural effusions. Was evaluated by cardiology found to have
a EF of 10 to 15% and regional wall motion abnormalities on 2D echocardiogram. Taken to the [employer] which demonstrated trivial luminal irregularities. Therefore believed cardiomyopathy is nonischemic and concerned that this could be Takotsubo's
cardiomyopathy.
On discharge we will go home with GDMT for HFrEF which includes diuretic, CECILIA inhibitor, beta-delia, and an SGLT2 inhibitor. Will need continued outpatient cardiology follow-up and repeat 2D echocardiogram in 3 months time.
C
RECOMMENDATIONS
1. expectant management after cardiac catheterization via right radial artery and right brachial vein approach
2. further workup and management of nonischemic cardiomyopathy. reassessment of EF and MR severity after several months of maximally tolerated GDMT to determine indication for METAL FURNITURE REPAIRER/mitraclip.
3. transition to oral diuretics tomorrow
2d echo
CONCLUSIONS
-LV ejection fraction is 10-15%, by visual assessment. Severe global
hypokinesis. Wall motion is also consistent with conduction abnormality.
-Normal right ventricular size and function.
-Severely dilated left atrium. Moderately dilated right atrium.
-Moderate to severe mitral regurgitation.
-Mild to moderate tricuspid regurgitation. Estimated pulmonary artery pressure
of 25-30 mmHg.
No prior study available for comparison.
Discharge Plan
-
Patient Disposition: Home (Routine Discharge)
Discharge Diagnosis/Procedures: Acute heart failure, Cardiac cath
Diet: As tolerated, Low Fat, Low Cholesterol, Low Sodium, 2 Gram Sodium, No added salt and Restrict fluids to 48 oz
Driving Restrictions: No driving for 24 hours
Blood Work: BMP in 1 week. Please follow up labs with Dr. Jeana Rob
Other Services: Cardiac Rehab
Specialty Instructions: Weigh Daily- Call MD for wt gain/loss 3 lbs overnight/5 lbs in 1 week
Activity Restrictions/Additional Instructions:
Presented with shortness of breath with associated exertion and mild productive cough. Found to have a high cardiac BNP and cardiac enzymes along with chest x-ray demonstrating bilateral pleural effusions. Was evaluated by cardiology found to have
a EF of 10 to 15% and regional wall motion abnormalities on 2D echocardiogram. Taken to the [employer] Operator which demonstrated trivial luminal irregularities. Therefore believed cardiomyopathy is nonischemic and concerned that this could be Takotsubo's
cardiomyopathy.
On discharge we will go home with GDMT for HFrEF which includes diuretic, CECILIA inhibitor, beta-delia, and an SGLT2 inhibitor. Will need continued outpatient cardiology follow-up and repeat 2D echocardiogram in 3 months time.
[facility]
RECOMMENDATIONS
1. expectant management after cardiac catheterization via right radial artery and right brachial vein approach
2. further workup and management of nonischemic cardiomyopathy. reassessment of EF and MR severity after several months of maximally tolerated GDMT to determine indication for METAL FURNITURE REPAIRER/mitraclip.
3. transition to oral diuretics tomorrow
2d echo
CONCLUSIONS
-LV ejection fraction is 10-15%, by visual assessment. Severe global
hypokinesis. Wall motion is also consistent with conduction abnormality.
-Normal right ventricular size and function.
-Severely dilated left atrium. Moderately dilated right atrium.
-Moderate to severe mitral regurgitation.
-Mild to moderate tricuspid regurgitation. Estimated pulmonary artery pressure
of 25-30 mmHg.
No prior study available for comparison.
Instructions: Heart failure with reduced ejection fraction, *CBC Heart Failure Instructions
Stand Alone Forms: DC Instructions- Cath/EP Lab
Referrals:
[facility] [Outside]
Zara Garnica NP [Specified Professional Personl] - 12/06/24 11:00 am
Jeana Rob MD [Family Provider] - None
Prescriptions:
New
Jardiance 10 mg tablet
10 mg PO DAILY Qty: 30 0RF
furosemide 40 mg Tablet
40 mg PO DAILY Qty: 30 0RF
aspirin 81 mg Tablet,Chewable
81 mg PO DAILY Qty: 30 0RF
metoprolol succinate 25 mg Tablet Extended Release 24 Hr
25 mg PO DAILY Qty: 30 0RF
lisinopril 10 mg tablet
10 mg PO DAILY Qty: 30 0RF
Continued
clonazepam 0.5 mg tablet
0.25 mg PO BIDPRN PRN (Reason: anxiety)
fexofenadine 180 mg Tablet
180 mg PO DAILYPRN PRN (Reason: sinus infection/congestion)
Calms Forte
1 tab PO HSPRN PRN (Reason: sleep)
Discontinued
lisinopril 5 mg tablet
5 mg PO DAILY
amoxicillin-pot clavulanate 875-125 mg tablet
1 tab PO BID
Discharge Orders:
Discharge Patient (As Directed); Ordered 11/15/24
Ordered By: Shawn Thomas
Care Plan Goals
Care Plan Goals:
Problem: Readiness for enhanced knowledge related to diagnosis and treatment plan
Goal: Understand your diagnosis and treatment plan needs, including medications if applicable.
Instructions: Know your diagnosis, underlying causes and treatment plan options, including medications if applicable. Consult with your health care team to learn about your diagnosis and treatment plan, including medications if applicable.
Discharge Date and Time
Print Language: KUWAITI
--- NOTE | 2024-11-15 18:03 | PTCARENOTE ---
D/C instructions discussed w/pt & pt's spouse. Pt's IV line & monitoring coordinator D/C'd. Pt taken out via wheelchair by staff.
== END 2024-11-15 17:34 | disposition home health service (06) | DRG 286 ==
LOC: IVU 14:36
PROVIDERS: Nurse Practitioner; Physician Assistant; Student in an Organized Health Care Education/Training Program; ADMITTING PHYSICIAN Hospitalist; ATTENDING PHYSICIAN Hospitalist; EMERGENCY PHYSICIAN Emergency Medicine; FAMILY PHYSICIAN Family Medicine; OTHER PHYSICIAN Internal Medicine
PROC: B2111ZZ Fluoroscopy of Multiple Coronary Arteries using Low Osmolar Contrast (ICD-10-PCS; 2024-11-14)
PROC: 4A023N8 Measurement of Cardiac Sampling and Pressure, Bilateral, Percutaneous Approach (ICD-10-PCS; 2024-11-14)
DX: I11.0 Hypertensive heart disease with heart failure (principal); I50.23 Acute on chronic systolic (congestive) heart failure; I47.20 Ventricular tachycardia, unspecified; I5A Non-ischemic myocardial injury (non-traumatic); I44.7 Left bundle-branch block, unspecified; I27.20 Pulmonary hypertension, unspecified; F41.9 Anxiety disorder, unspecified; I08.1 Rheumatic disorders of both mitral and tricuspid valves; R73.03 Prediabetes; E78.00 Pure hypercholesterolemia, unspecified; J32.9 Chronic sinusitis, unspecified; Z88.1 Allergy status to other antibiotic agents; Z88.2 Allergy status to sulfonamides; Z88.8 Allergy status to other drugs, medicaments and biological substances; Z92.3 Personal history of irradiation; Z86.000 Personal history of in-situ neoplasm of breast
CPT/HCPCS: 71046; 80048; 80053; 80061; 83036; 83735; 83880; 84443; 84484; 85025; 85027; 86803; 93005; 93306; 93460; 96374; 99285; C1894; Q9967

== ENCOUNTER → 2024-11-20 13:47 | Outpatient (REF) | payer MEDICARE, OTHER, SELFPAY ==
[2024-11-20 17:22] LABS: Blood Urea Nitrogen 25 mg/dl (7-17); Calcium 9.9 mg/dl (8.4-10.2); Carbon Dioxide 34 mmol/L (22-30); Chloride 92 mmol/L (98-107); Glucose 124 mg/dl (70-99); Potassium 3.6 mmol/L (3.5-5.1); Sodium 134 mmol/L (135-145); eGFR > 60.00
== END ==
LOC: HWLAB 13:47
PROVIDERS: ATTENDING PHYSICIAN Family Medicine; REFERRING PHYSICIAN Student in an Organized Health Care Education/Training Program
DX: I50.9 Heart failure, unspecified (principal)
CPT/HCPCS: 36415; 80048

== ENCOUNTER → 2024-12-20 11:22 | Outpatient (REF) | payer MEDICARE, OTHER, SELFPAY ==
[2024-12-20 15:50] LABS: Blood Urea Nitrogen 24 mg/dl (7-17); Carbon Dioxide 30 mmol/L (22-30); Chloride 99 mmol/L (98-107); Glucose 92 mg/dl (70-99); Potassium 3.9 mmol/L (3.5-5.1); Sodium 136 mmol/L (135-145); eGFR > 60.00
== END ==
LOC: HWLAB 11:22
PROVIDERS: ATTENDING PHYSICIAN Nurse Practitioner; FAMILY PHYSICIAN Family Medicine
DX: I10 Essential (primary) hypertension (principal); I42.0 Dilated cardiomyopathy
CPT/HCPCS: 36415; 80048

== ENCOUNTER → 2025-03-11 11:20 | Outpatient (REF) | payer MEDICARE, OTHER, SELFPAY | LOC: HWRCS 11:20 | PROVIDERS: ATTENDING PHYSICIAN Nurse Practitioner; FAMILY PHYSICIAN Family Medicine | DX: I10 Essential (primary) hypertension (principal); I42.0 Dilated cardiomyopathy; I50.21 Acute systolic (congestive) heart failure; I34.0 Nonrheumatic mitral (valve) insufficiency | CPT/HCPCS: 93306 ==

== ENCOUNTER → 2025-03-21 11:01 | Outpatient (REF) | payer MEDICARE, OTHER, SELFPAY ==
[2025-03-21 12:25] LABS: % Basophils 0.5 % (0-2); % Eosinophils 1.7 % (0-6); % Immature Granulocytes 0.3 % (0-0.5); % Lymphocytes 26.7 % (20.5-51.1); % Monocytes 8.8 % (1.7-9.3); Absolute Eosinophils 0.1 10^3/uL (0-0.7); Absolute Lymphocytes 2.1 10^3/uL (1.2-3.4); Absolute Monocytes 0.7 10^3/uL (0.1-0.6); Absolute Neutrophils 4.8 10^3/uL (1.4-6.5); Hematocrit 43.5 % (37.0-47.0); Hemoglobin 14.9 g/dL (12.0-16.0); Mean Corp Hgb Conc. 34.3 g/dL (33.0-37.0); Mean Corpuscular Hgb 33.7 pg (27.0-31.0); Mean Corpuscular Volume 98.4 fL (81.0-99.0); Mean Platelet Volume 8.4 fL (7.4-10.4); Nucleated Red Blood Cells % 0 %; Platelet Count 283 10^3/uL (130-400); Red Blood Cell Count 4.42 10^6/uL (4.20-5.40); Red Cell Dist. Width 12.3 % (11.5-14.5); White Blood Cell Count 7.8 10^3/uL (4.8-10.8)
[2025-03-21 13:46] LABS: ALT (SGPT) 15 U/L (0-35); AST (SGOT) 20 U/L (14-36); Albumin 3.9 g/dl (3.5-5.0); Alkaline Phosphatase 48 U/L (38-126); Blood Urea Nitrogen 18 mg/dl (7-17); Calcium 9.8 mg/dl (8.4-10.2); Carbon Dioxide 29 mmol/L (22-30); Chloride 100 mmol/L (98-107); Glucose 90 mg/dl (70-99); Potassium 4.1 mmol/L (3.5-5.1); Sodium 136 mmol/L (135-145); Total Bilirubin 0.8 mg/dl (0.2-1.3); Total Protein 6.2 g/dl (6.3-8.2); eGFR > 60.00
== END ==
LOC: HWLAB 11:01
PROVIDERS: ATTENDING PHYSICIAN Internal Medicine; FAMILY PHYSICIAN Family Medicine
DX: I50.21 Acute systolic (congestive) heart failure (principal); I44.7 Left bundle-branch block, unspecified
CPT/HCPCS: 36415; 80053; 85025

== ENCOUNTER 2025-03-31 08:16 | Day surgery (SDC) | payer MEDICARE, OTHER, SELFPAY ==
[2025-03-31] VITALS (9 sets, daily range): BP systolic 105–130; BP diastolic 50–76; BMI 24.4
--- NOTE | 2025-03-31 09:12 | W.ICD.CONTRA ---
Post ICD/BEAN SNAPPER-D
-
History of MT?: No
LV Function
Left ventricular function study result?: Ejection Fraction </= 35%
ACEI/ARB/ARNI
Patient already on ACEI/ARB/ARNI: Yes
Beta-Raj
Patient already on Beta Raj: Yes
[2025-03-31] MEDS: VANCOCIN 200 IV (09:13)
[2025-03-31] MEDS: NSS 500 IV ×2 (09:15→13:17)
--- NOTE | 2025-03-31 12:02 | ITS.CL.ICD ---
Purchasing Intern - ICD
Implantable Cardioverter Defibrillator
Procedure Report:
PHOTOCOPY OPERATOR-D with Bi-Ventricular Implantable Cardiac Defibrillator (BiV-ICD) Placement:
Mr. Houston is a 79 years old woman with non-ischemic cardiomyopathy presented with class III NYHA symptoms with LVEF of 20% and has LBBB, with persistent low LVEF despite on guideline directed optimal medical treatment for over 3 months. She is
also known to have non sustained ventricular tachycardia. She is in need for a BiV pacing and is here in EP lab for cardiac resynchronization therapy with defibrillator (PHOTOCOPY OPERATOR-D). Given the low EF, she is at risk of sudden cardiac and an ICD is
recommended.
Indications: Irreversible and symptomatic NYHA Class III chronic systolic congestive heart failure with depressed LV ejection fraction of 20% despite on maximal guideline directed medical therapy, Wide QRS with LBBB.
Date of the Procedure: 03/31/2025
Pre-Operative Diagnosis: Systolic heart failure with left bundle branch block
Post-Operative Diagnosis: Systolic heart failure with left bundle branch block
Procedure Performed: PHOTOCOPY OPERATOR-D with BIVENTRICULAR IMPLANTABLE DEFIBRILLATOR IMPLANTATION
Surgeon:
Danielle Navarro MD
Anesthesia:
See anesthesia records
Detailed Description of the Procedure:
The patient was identified using hospital identification and informed consent obtained for the procedure. The risks were explained to the patient and the family including, but not limited to: Bleeding, infection, arrhythmia, stroke,
vascular/cardiac/lung puncture, surgery, pacemaker dependency/device malfunction. All questions were answered.
A surgical pause was performed in accordance with hospital regulations. Anesthesia service provided sedation as reported separately. Antibiotics administered IV for risk of bacterial colonization. After obtaining informed and written consent, the
patient was brought to the electrophysiology laboratory.
A timeout was performed immediately before the procedure. The left chest was prepped from the nipple to the angle of the jaw with chlorhexidine, and draped following sterile technique in usual routine.�
The cephalic cut down was attempted but the vein was too small to accommodate the sheaths. The left arm venogram was done. There were open axillary vein and the subclavian vein patency documented. Following infiltration with local anesthetic, the
axillary vein was accessed under ultrasound and the venogram guidance using the micro-puncture apparatus. The second and third stick was again repeated with similar fashion using cook needle. The guide wires were advanced to the inferior vena cava
(IVC) under flouro guidance. The third guidewire was advanced to the SVC using retained guide wire technique with the help of hemostatic peel away introducer sheaths.
A subcutaneous pocket was created with blunt dissection and use of electrocautery. Hemostasis was excellent.
The right ventricular lead was placed at the RV apex with defibrillator coil well into the RV cavity and screwed in place with appropriate sensing and threshold. The atrial lead was placed at the right atrial appendage. RA and RV leads inserted
fluoroscopically, tested and functioning appropriately with upright current of injury (lead information below). The leads were secured to the deep fascia with 2-0 Ethibond sutures placed on the anchoring sleeves.
Attention then was turned to the coronary sinus. The guide wire was advanced to the IVC and a long hemostatic peel away sheath was advanced to the RA.
The CS was cannulated using radiofocus glidewire.
The sheath was advanced into the CS over a Terumu glidewire. Coronary sinus venography was obtained with a balloon catheter in the CS. ~7 cc contrast used. CS anatomy revealed a posterolateral branch and an stacie lateral vein. The posterolateral
branch was accessed using a BMW wire. There was a small PL bran and an acceptable lateral branch. The double canted quadripolar lead was placed in the lateral branch and it had excellent thresholds and great EKG morphology. During pacing, QRS
complex was favorable, with a QS in lateral leads and RBBB configuration during LV pacing. It was deemed ideal for biventricular pacing. Diaphragmatic stimulation was not present with high output pacing here.
The long guiding sheath was removed from the CS without change in lead position, impedance, sensing, or capture. Short WI interval permitted AdaptivCRT pacing with BiV / LV only pacing.� The lead was sutured to the underlying pectoralis fascia with
0-silk stitches.
Then the atrial lead was placed via a separate stick to the axillary vein. The pacing lead was deployed in the RAA using the active fixation.
The leads were attached to the pulse generator in standard configuration with acceptable sensing and threshold parameters. The pocket was irrigated with antibiotic solution; the pocket was inspected with no active bleeding noted. The device and the
leads were placed in the pocket.
Deep subcutaneous tissues were closed with 2-0 V loc sutures; intermediate subcutaneous tissue was reopposed using a running 2-0 V loc suture, and the dermis was reopposed using a running 4-0 V Monocryl subcuticular suture. Sponge counts / sharp
counts were appropriate.
A pressure dressing was applied.
Procedure End:
The procedure was tolerated well. Aquacel bandaged was applied. A pressure dressing was applied.
Estimated Blood loss:
5 cc
Specimens Removed:
No cultures and no specimens were obtained. No intraoperative pathology was identified.
Urine output:
None
Packs / Drains/ Tubes:
None
Instrument / Sponge Count Correct:
Yes
Flouro time:
23.1min / 8.89 Gycm2
Complications of the Procedure:
None
Condition of Patient at Time of Transfer:
Hemodynamically stable with no neurological or vascular compromise.
Device information:�
Generator: nuevoStage; Model: [id number]; Serial # [id number]�
����������� Atrial Lead: Medtronic; Model: 5076-52; Serial # [id number]
����������������������� Measured data in the right atrium was sensing of 1.8 mV and, impedance of 475 Ohms and threshold of 0.5 V at 0.4ms�
����������� RV Lead: Medtronic; Model: 6935M-62; Serial # [id number]
����������������������� Measured data on the RV lead was sensing of 13mV, impedance of 490 ohms and threshold of 0.5 V at 0.4ms�
����������� LV pacing lead: Medtronic; Model: 4298-88; Serial # [id number]
����������������������� Measured data on the LV lead was impedance of 370 ohms and threshold of 0.75 V at 0.4ms (LV2 to LV3; diaphragm not seen at max output).
PROGRAMMING PARAMETERS:�
Sacha parameter settings were DDDR 50-130 �
����������� Paced AV interval: 130ms
����������� Sensed AV interval: 100 ms.
����������� Rate Adaptive A-V Interval: on
Tachy parameter settings:
����������� SVT discrimination: On
����������� AF/AFl: On
����������� SVT limit: 260 msec
����������� VT zone:
Slow VT: 150 -180bpm - Monitor
Fast VT/ VF: 181-220 bpm � ATP x2 then Shock x6
Summary:
Successful implantation of MRI compatible Medtronic PHOTOCOPY OPERATOR-D system.
Results/Recommendations:
-Please follow up CXR�
-Please provide patient with adequate pain control�
Instructions to be given to patient:�
- Please follow up with [facility] at [address] [place] [address] ([phone]) to get your wound checked in 2 weeks of your discharge. Then follow with
- Do not wet incision site until after it is evaluated at cardiology clinic. No baths or showers until then. Sponge baths / showers are OK but dab dry the dressing after it is wet.�
- Allow 'steri strips' to fall off on their own�
- Do not lift left elbow above shoulder, particularly with sudden jerking movements, for 1 month�
- Do not lift anything weighing more than 5 pounds with the left arm for 1 month�
- If you notice any fevers, shortness of breath, lightheadedness, chest pain, or worsening swelling in the wound site, please contact the arrhythmia clinic, contact your lambskin trimmer, or present to the hospital for evaluation.�
Danielle Navarro MD
Electrophysiology
--- NOTE | 2025-03-31 12:54 | PTCARENOTE ---
Received patient after ICD placement left upper chest. Pressure dressing in place left upper chest which is dry and intact. Immobilizer in place. Post op EKG done, patient is V paced on the monitor. Patient questioning why she needed to be admitted,
upset that the device is on her left side, questions/concerns answered. Oriented to the room and plan of care. Call perez in reach, monitoring VS.
[2025-03-31] MEDS: STERILE WATER FOR INJECTION 10 ML IV (13:17)
[2025-03-31] MEDS: AZACTAM 2000 MG IV (13:17)
[2025-03-31] MEDS: TYLENOL 650 MG PO ×2 (14:37→19:45)
--- NOTE | 2025-03-31 18:09 | PTCARENOTE ---
Patient assisted to the bathroom, sitting oob in the chair visiting with her , call perez in reach. Instructed to call for assistance when ambulating to the bathroom. Patient complaining about immobilizer, not happy with wearing it, explained
importance of maintaining it and reinforced post ICD activity restrictions.
[2025-03-31] MEDS: KLONOPIN 0.25 MG PO (21:39)
[2025-04-01] MEDS: TYLENOL 650 MG PO ×3 (00:55→08:52)
[2025-04-01 02:26] VITALS: BP 123/66
[2025-04-01 04:16] LABS: Hematocrit 41.6 % (37.0-47.0); Hemoglobin 14.2 g/dL (12.0-16.0); Mean Corp Hgb Conc. 34.1 g/dL (33.0-37.0); Mean Corpuscular Hgb 33.4 pg (27.0-31.0); Mean Corpuscular Volume 97.9 fL (81.0-99.0); Mean Platelet Volume 8.5 fL (7.4-10.4); Platelet Count 221 10^3/uL (130-400); Red Blood Cell Count 4.25 10^6/uL (4.20-5.40); Red Cell Dist. Width 11.9 % (11.5-14.5); White Blood Cell Count 7.6 10^3/uL (4.8-10.8)
[2025-04-01 04:36] LABS: Blood Urea Nitrogen 16 mg/dl (7-17); Calcium 9.5 mg/dl (8.4-10.2); Carbon Dioxide 28 mmol/L (22-30); Chloride 108 mmol/L (98-107); Estimated Creatinine Clearance 51 ml/min; Glucose 82 mg/dl (70-99); Potassium 3.6 mmol/L (3.5-5.1); Sodium 137 mmol/L (135-145); eGFR > 60.00
[2025-04-01 07:34] VITALS: BP 121/55
[2025-04-01 07:58] VITALS: BMI 24.0
--- NOTE | 2025-04-01 08:46 | W.PN.CD ---
Today's Communication / Plan
-
- Stable for discharge
Impression / Plan
-
Mr. Houston is a 79 years old woman with non-ischemic cardiomyopathy presented with class III NYHA symptoms with LVEF of 20% and has LBBB, with persistent low LVEF despite on guideline directed optimal medical treatment for over 3 months. She is
also known to have non sustained ventricular tachycardia - s/p cardiac resynchronization therapy with defibrillator (SPANISH INTERPRETER/TRANSLATOR-D) - MDT 03/31/25
Chronic systolic heart failure
- LVEF 15-20%
- Chronic LBBB - QRS is 186 msec pre-implant
- on GDMT -metoprolol, lisinopril, Jardiance (switch to Farxiga for inpatient use only)
- s/p BiV ICD - Medtronic on 03/31/25
- Stable for discharge now.
NSVT:
-continue BB
HTN:
-stable
-monitor with medicine adjustments
TTE 11/14/2023
-LV ejection fraction is 10-15%, by visual assessment. Severe global
hypokinesis. Wall motion is also consistent with conduction abnormality.
-Normal right ventricular size and function.
-Severely dilated left atrium. Moderately dilated right atrium.
-Moderate to severe mitral regurgitation.
-Mild to moderate tricuspid regurgitation. Estimated pulmonary artery pressure
of 25-30 mmHg.
Cath 11/14/2023
1. Elevated biventricular filling pressures, mild pulmonary hypertension, and mildly reduced cardiac output and index.
2. No aortic stenosis on hemodynamic pullback.
3. Trivial luminal irregularities in a right dominant system.
Physical Exam
Vital Signs/Labs
Vital Signs
Temp Pulse Resp BP Pulse Ox
97.4 F 65 16 121/55 97
04/01/25 07:35 04/01/25 07:35 04/01/25 07:35 04/01/25 07:34 04/01/25 07:35
03/31/25 04/01/25 04/02/25
06:59 06:59 06:59
Actual Weight 58.6 kg 57.7 kg
04/01/25 02:48
04/01/25 02:48
Physical Exam
Constitutional: No acute distress and Comfortable
EENT: Anicteric and Moist mucous membranes
Cardiovascular: Rhythm & rate is regular, Pedal edema is absent and JVD pressure is normal
Respiratory: Respiratory effort normal, Lungs clear to auscul. and Wheeze Absent
GI: Soft, Distention absent, Non tender and Normal bowel sounds
Neuro/Psych: Alert, Oriented and AO x 3
Data Reviewed
-
Date of Service: April 01, 2025
Medical Decision Making: Reviewed Test Results, Test Interpretation and Review of Case with other Provider
EKG: Tracing Personally Visualized and interpreted
Echo: Tracing Personally Visualized and interpreted
Labs: Labs Ordered by me
Old Records: Reviewed
[2025-04-01] MEDS: FARXIGA 10 MG PO (08:49)
[2025-04-01] MEDS: ZESTRIL 10 MG PO (08:50)
[2025-04-01] MEDS: LASIX 20 MG PO (08:50)
[2025-04-01] MEDS: LOW STRENGTH ASPIRIN 81 MG PO (08:50)
[2025-04-01] MEDS: TOPROL XL 25 MG PO (08:50)
--- NOTE | 2025-04-01 09:30 | PTCARENOTE ---
Received patient this morning resting in bed, arm immobilizer removed and pressure dressing removed by surgery. Aquacel dressing left upper chest is dry and intact with scant old drainage. Medicated with tylenol PO for discomfort, patient is very
anxious and worried about restrictions, recovery and wants to go home. Does not like being in her room alone, her will be back to take her home. Assisted to the visitor's lounge.
--- NOTE | 2025-04-01 10:42 | W.DS.TRANS ---
DC Summary - Food Specialist
-
Discharge Instructions:
Discharge Diagnosis/Procedures Bi-V ICD implant
Diet Low Cholesterol
Driving Restrictions No driving for 1 week
Bathing Restrictions OK to Shower
Instructions:
Stand-Alone Forms: DC Inst - Implanted Device
Changes to Home Medications: No
Discharge Medications:
DC Medications w/original date entered in [employer]
Calms Forte 1 tab PO HSPRN PRN sleep 11/13/24
clonazepam 0.5 mg tablet 0.25 mg PO BIDPRN PRN anxiety 11/13/24
fexofenadine 180 mg tablet 180 mg PO DAILYPRN PRN sinus infection/congestion 11/13/24
aspirin 81 mg chewable tablet 81 mg PO DAILY #30 tabs 11/15/24
empagliflozin 10 mg tablet (Jardiance) 10 mg PO DAILY #30 tabs 11/15/24
lisinopril 10 mg tablet 10 mg PO DAILY #30 tabs 11/15/24
metoprolol succinate 25 mg tablet,extended release 24 hr 25 mg PO DAILY #30 tabs 11/15/24
furosemide 20 mg tablet 20 mg PO DAILY 03/31/25
Home Medication Changes
Pending Results: No
--- NOTE | 2025-04-01 10:55 | PTCARENOTE ---
Patient seen by cardiology and is ok for discharge. Reviewed discharge instructions, restrictions and follow up appointment with the patient and her and they state their understanding. Patient discharged home with her .
--- NOTE | 2025-04-01 11:48 | CM ---
spoke to pt in room, she is previndep, lives with her husb in a 2 story home with 1 step to enter. plan is for dc to home when medically stable.
== END 2025-04-01 11:14 | disposition home or self-care (01) ==
LOC: CATH 08:16
PROVIDERS: Nurse Practitioner; ATTENDING PHYSICIAN Internal Medicine Cardiovascular Disease; FAMILY PHYSICIAN Family Medicine; OTHER PHYSICIAN Internal Medicine
DX: I11.0 Hypertensive heart disease with heart failure (principal); I50.22 Chronic systolic (congestive) heart failure; I44.7 Left bundle-branch block, unspecified; I08.1 Rheumatic disorders of both mitral and tricuspid valves; I42.8 Other cardiomyopathies; I27.20 Pulmonary hypertension, unspecified; I47.20 Ventricular tachycardia, unspecified; Z88.1 Allergy status to other antibiotic agents; Z88.2 Allergy status to sulfonamides; Z79.82 Long term (current) use of aspirin; Z79.899 Other long term (current) drug therapy
CPT/HCPCS: 33249; 33225; 71045; 80048; 85027; 93005; C1769; C1777; C1882; C1887; C1892; C1898; C1900; Q9967